=== PATIENT | female | born 1985 | race Two or more races ===

== ENCOUNTER 2024-05-25 23:48 | Emergency (ER) | payer MEDICAID, SELFPAY ==
--- NOTE | 2024-05-26 | ECG_ITS ---
Test Reason : TACHY Blood Pressure : */* mmHG Vent. Rate : 109 BPM Atrial Rate : 109 BPM P-R Int : 138 ms QRS Dur : 82 ms QT Int : 332 ms P-R-T Axes : 64 45 -12 degrees QTcB Int : 447 ms Sinus tachycardia Cannot rule out Inferior infarct , age undetermined Abnormal ECG When compared with ECG of 20-Dec-2012 20:12, Minimal criteria for Inferior infarct are now Present Nonspecific T wave abnormality now evident in Lateral leads Referred By: Generic ED Physician Electronically Signed By: OSMAR CHARLES MD
[2024-05-26 00:05] VITALS: BP 138/86; PULSE 114; O2SAT 100
[2024-05-26 00:16] VITALS: BP 153/72; PULSE 101; RESP 18; TEMP 36.8; O2SAT 98; BMI 27.9
[2024-05-26 00:39] LABS: MANUAL DIFF FLAG NO
[2024-05-26 00:40] LABS: Basophils Percent Auto 0.4 % (0-2); Eosinophils Absolute Auto 0.1 X10*3/uL (0.0-0.4); Hemoglobin 12.2 g/dl (12.0-16.0); Imm Gran Abs Auto 0.01 X10*3/uL (0.00-0.03); Imm Gran Pct Auto 0.2 % (0.0-0.4); Lymphocytes Absolute Auto 1.8 X10*3/uL (1.2-4.9); Lymphocytes Percent Auto 34.1 % (20-40); Mean Corpuscular Hemoglobin 30.4 pg (27.0-33.0); Mean Corpuscular Volume 92.3 fL (80.0-98.0); Mean Platelet Volume 9.3 fL (9.4-12.3); Monocytes Absolute Auto 0.3 X10*3/uL (0.1-1.2); Neutrophils Absolute Auto 3.1 x10*3/uL (2.0-8.3); Neutrophils Percent Auto 58.3 % (45-73); Platelet Count 348 X10*3/uL (160-400); Red Blood Count 4.01 X10*6/uL (4.20-5.50); Red Cell Distribution Width 12.7 % (11.0-16.0); White Blood Count 5.4 X10*3/uL (4.8-10.8)
[2024-05-26 00:56] LABS: Alanine Aminotransferase 19 U/L (0-31); Albumin Level 4.5 g/dL (3.5-5.0); Alkaline Phosphatase 71 U/L (39-117); Anion Gap 13 (12-20); Aspartate Amino Transferase 28 U/L (5-31); Bilirubin Total 0.2 mg/dL (0.0-1.0); Blood Urea Nitrogen 11 mg/dL (9-16); Carbon Dioxide 20 mmol/L (22-29); Chloride 111 mmol/L (96-108); Creatinine Clr Calc Pharmacy 99.3; Estimated Glomerular Filt Rate > 60; Glucose Random 100 mg/dL (60-115); Lipase 53 U/L (8-78); Sodium 140 mmol/L (135-145); Total Protein 7.6 g/dL (6.5-8.0)
[2024-05-26 01:03] LABS: Troponin-I High Sensitivity < 2.7 ng/L (<3.5-17.0)
[2024-05-26 03:27] VITALS: BP 132/69; PULSE 93; RESP 20; TEMP 36.7; O2SAT 99
[2024-05-26 03:57] LABS: COVID-19 Test Negative (Negative); IDNOW Serial# 55D5AD1C; IDNOW Serial# 58CA691E; Influenza A Negative (Negative); Influenza B2 Negative (Negative)
== END 2024-05-26 04:34 | disposition left against medical advice (07) ==
LOC: HO.ED 05-26 04:29
PROVIDERS: Emergency Provider Emergency Medicine
DX: R00.0 Tachycardia, unspecified (principal); Z53.21 Procedure and treatment not carried out due to patient leaving prior to being seen by health care provider
CPT/HCPCS: 36415; 80053; 83690; 84484; 85025; 87502; 87635; 93005; 99283

== ENCOUNTER → 2024-05-26 00:28 | Outpatient (BNV) | payer SELFPAY | PROVIDERS: Emergency Provider Emergency Medicine; Visit Provider Internal Medicine Cardiovascular Disease | DX: R00.0 Tachycardia, unspecified (principal) | CPT/HCPCS: 93010 ==